=== PATIENT | female | born 1950 | race Caucasian/White ===

== ENCOUNTER 2017-08-13 18:14 | Emergency (ER) | payer BC ==
[~2017-08-13] VITALS: Ht 162.6 cm; Wt 81.6 kg
[2017-08-13 18:18] VITALS: BP 158/87
--- NOTE | 2017-08-13 19:00 | NUR ---
PATIENT TAKEN TO BED #2
--- NOTE | 2017-08-13 19:16 | NUR ---
PT BIBA W/ C/O POSTERIOR NECK, BL SHOULDER, AND BL LOWER EXTREMITY PAIN. PT WEARING C-COLLAR ON ARRIVAL. HX OF CHILDHOOD ASTHMA;DENIES N/V/D; SKIN IS PINK/WARM/DRY; AAOX4; LUNGS CLEAR BL; HR EVEN AND REGULAR; PT DENIES ANY FEVER, CP, SOB, OR COUGH AT THIS TIME; PATIENT STATES PAIN OF 8/10 AT THIS TIME; PATIENT POSITIONED FOR COMFORT; HOB ELEVATED; BEDRAILS UP X2; BED DOWN. ER MD MADE AWARE OF PT STATUS.
--- NOTE | 2017-08-13 19:25 | NUR ---
REPORT RECEIVED FROM ANNA, ON [employer]. FAMILY AT BEDSIDE.
--- NOTE | 2017-08-13 20:16 | NUR ---
HORTENCIA ANAND AT BEDSIDE EVALUATING PT.
[2017-08-13] MEDS ORDERED: ACETAMINOPHEN EXTRA STRENGTH 500 MG TAB PO ONE (20:25)
[2017-08-13 20:51] VITALS: BP 147/84
--- NOTE | 2017-08-13 20:51 | NUR ---
Patient discharged with v/s stable. Written and verbal after care instructions given and explained. Patient alert, oriented and verbalized understanding of instructions. Ambulatory with steady gait. All questions addressed prior to discharge. ID band removed. Patient advised to follow up with PMD IN 2-3 DAY OR RETURN TO ER IF CONDITION WORSENS. Rx of IBUPROFEN AND FLEXERIL given. Patient educated on indication of medication including possible reaction and side effects. Opportunity to ask questions provided and answered.
== END 2017-08-13 20:51 | disposition home or self-care (01) ==
LOC: MED 18:14
DX: S13.4XXA Sprain of ligaments of cervical spine, initial encounter (principal); M79.605 Pain in left leg; M79.604 Pain in right leg; M25.512 Pain in left shoulder; M25.511 Pain in right shoulder; J45.909 Unspecified asthma, uncomplicated; Z88.0 Allergy status to penicillin; V49.40XA Driver injured in collision with unspecified motor vehicles in traffic accident, initial encounter; Y93.89 Activity, other specified; Y92.488 Other paved roadways as the place of occurrence of the external cause; Y99.8 Other external cause status
CPT/HCPCS: 72040; 99284